=== PATIENT | female | born 2000 | race Caucasian/White ===

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

== ENCOUNTER 2019-06-19 21:45 | Emergency (ER) | payer OTHER ==
[2019-06-19 21:55] VITALS: BP 147/80
--- NOTE | 2019-06-19 22:08 | UC ---
HPI Wound/Suture Re-check - HPI Summary HPI Summary: 19 yo female s/p CS on 06/09 today she stood up and she felt wetness after a "gush" see called her OB and was told to f/u on Friday no fever no increase in her post op pain - History Of Current Complaint Stated Complaint: PERSONAL Hx Obtained From: Patient Hx Last Menstrual Period: 05/01/18 Onset/Duration: Sudden Onset, Lasting Hours Severity: Mild Pain Scale Used: 0-10 Numeric Surgery Date: 06/10/19 - C/S - Allergies/Home Medications Allergies/Adverse Reactions: Allergies Allergy/AdvReac Type Severity Reaction Status Date / Time oseltamivir [From Tamiflu] Allergy Hives Verified 06/19/19 21:52 sulfamethoxazole Allergy Hives Verified 06/19/19 21:52 [From Bactrim] trimethoprim [From Bactrim] Allergy Hives Verified 06/19/19 21:52 Home Medications: Home Medications Docusate CAP* [Colace Cap*] 1 cap DAILY 06/19/19 [History Confirmed 06/19/19] Ibuprofen TAB* [Motrin TAB* 800 MG] 800 mg PO Q6H PRN 06/19/19 [History Confirmed 06/19/19] Iron Pill 1 tab DAILY 06/19/19 [History Confirmed 06/19/19] PMH/Surg Hx/FS Hx/Imm Hx Previously Healthy: Yes - Surgical History Surgical History: None - Family History Known Family History: Positive: Respiratory Disease - asthma Negative: Cardiac Disease, Hypertension, Diabetes - Social History Alcohol Use: None Substance Use Type: None Smoking Status (MU): Never Smoked Tobacco Have You Smoked in the Last Year: No Household Exposure Type: Cigarettes - Immunization History Vaccination Up to Date: Yes Review of Systems All Other Systems Reviewed And Are Negative: Yes Constitutional: Positive: Negative Skin: Positive: Negative Eyes: Positive: Negative ENT: Positive: Negative Respiratory: Positive: Negative Cardiovascular: Positive: Negative Gastrointestinal: Positive: Negative Genitourinary: Positive: Negative Motor: Positive: Negative Neurovascular: Positive: Negative Musculoskeletal: Positive: Negative Neurological/Mental Status: Positive: Negative Psychological: Positive: Negative Physical Exam Triage Information Reviewed: Yes Appearance: Well-Appearing, No Pain Distress, Well-Nourished Vital Signs Reviewed: Yes Eyes: Positive: Conjunctiva Clear ENT: Positive: Hearing grossly normal, Uvula midline. Negative: Nasal congestion, Nasal drainage, Hoarse voice Neck: Positive: Supple Respiratory: Positive: Lungs clear, Normal breath sounds, No respiratory distress Cardiovascular: Positive: RRR, No Murmur Abdomen Description: Positive: Other: - serous drainage from left lateral surgical site. Negative: Nontender - tender surgical site, CVA Tenderness (R), CVA Tenderness (L) Bowel Sounds: Positive: Present Musculoskeletal: Positive: ROM Intact, No Edema Neurological: Positive: Alert Psychological Exam: Normal Skin Exam: Normal Course/Dx - Diagnosis Provider Diagnosis: Seroma after procedure Discharge ED - Sign-Out/Discharge Documenting (check all that apply): Patient Departure All imaging exams completed and their final reports reviewed: No Studies - Discharge Plan Condition: Stable Disposition: HOME Referrals: Malaika Alonso MD [Primary Care Provider] - Additional Instructions: I agree with your OB that is it ok to follow up on Friday Contact your OB if you note a fever or swelling or marked tenderness You drainage appears to be serous which is slightly blood tinged - Billing Disposition and Condition Condition: STABLE Disposition: Home
== END 2019-06-19 22:13 | disposition home or self-care (01) ==
LOC: UCCORT 21:45
DX: O90.2 Hematoma of obstetric wound (principal); Z88.2 Allergy status to sulfonamides; Z88.8 Allergy status to other drugs, medicaments and biological substances
CPT/HCPCS: 99211; G0463